=== PATIENT | female | born 1930 | race Caucasian/White ===

== ENCOUNTER 2018-06-27 12:20 | Emergency (ER) | payer BC ==
[~2018-06-27] VITALS: Ht 152.4 cm; Wt 63.5 kg
[2018-06-27] MEDS ORDERED: SWABABLE VALVE TRANSFER SET EA MC ONE (12:38)
[2018-06-27] MEDS ORDERED: IV NORMAL SALINE 0 ML IV ONE (12:38)
[2018-06-27] MEDS ORDERED: NORMAL SALINE FLUSH 10 ML DISP.SYRIN ONE (12:38)
[2018-06-27] MEDS ORDERED: IOHEXOL 350 100 ML INFUS..BTL ONE (12:38)
--- NOTE | 2018-06-27 13:46 | NUR ---
A staff from patient's assisted living home is coming to coal picker this patient. Patient is resting comfortably on her own wheelchair, NAD.
--- NOTE | 2018-06-27 14:16 | NUR ---
Patient discharged to assisted living home in stable conditon. Written and verbal after care instructions given to patient. Patient verbalizes understanding of instructions. Patient was seen walking using the handles of her own wheelchair to the ER waiting room.
== END 2018-06-27 14:20 | disposition home or self-care (01) ==
LOC: ER 12:20
DX: M79.661 Pain in right lower leg (principal); M79.662 Pain in left lower leg; F17.200 Nicotine dependence, unspecified, uncomplicated; Z90.89 Acquired absence of other organs
CPT/HCPCS: A4663; J3490; J7050; Q9967

== ENCOUNTER 2019-01-05 11:46 | Inpatient (IN) | payer BC, OTHER ==
[~2019-01-05] VITALS: Ht 162.6 cm; Wt 54.0 kg
[2019-01-05] MEDS ORDERED: IV NORMAL SALINE 1000 ML BAG IV ONE (12:00)
[2019-01-05] MEDS ORDERED: KETOROLAC TROMETHAMINE 15 MG INJ IV ONE (12:00)
[2019-01-05] MEDS ORDERED: SWABABLE VALVE TRANSFER SET EA MC ONE (12:17)
[2019-01-05] MEDS ORDERED: IOHEXOL 300MG/ML 100 ML INFUS..BTL ONE (12:18)
[2019-01-05] MEDS ORDERED: IV NORMAL SALINE 250 ML IV ONE (12:18)
[2019-01-05] MEDS ORDERED: KETOROLAC TROMETHAMINE 15 MG INJ ONE (12:19)
[2019-01-05 12:20] LABS: BASOPHILS % (AUTO) 0.4 % (0.0-2.0); EOSINOPHILS # (AUTO) 0.1 K/uL (0.0-0.7); EOSINOPHILS % (AUTO) 1.9 % (0.0-7.0); HEMATOCRIT 39.2 % (31.2-41.9); HEMOGLOBIN 12.7 g/dL (10.9-14.3); LYMPHOCYTES # (AUTO) 1.4 K/uL (20.0-40.0); LYMPHOCYTES % (AUTO) 24.5 % (20.5-51.5); MEAN CORPUSCULAR HEMOGLOBIN 30.1 uug (24.7-32.8); MEAN CORPUSCULAR HGB CONC 32 g/dL (32.3-35.6); MONOCYTES # (AUTO) 0.4 K/uL (2.0-10.0); MONOCYTES % (AUTO) 7.8 % (0.0-11.0); NEUTROPHILS # (AUTO) 3.7 K/uL (1.8-8.9); NEUTROPHILS % (AUTO) 65.4 % (38.5-71.5); PLATELET COUNT (AUTO) 182 K/uL (179-408); RED BLOOD CELL COUNT(AUTO) 4.21 MIL/uL (3.63-4.92); WHITE BLOOD COUNT (AUTO) 5.7 K/uL (3.8-11.8)
[2019-01-05 12:35] LABS: CARBON DIOXIDE 28 mmol/L (21-32); CHLORIDE 106 mmol/L (98-107); CREATININE 0.9 mg/dL (0.6-1.3); GLUCOSE 100 mg/dL (74-106); POTASSIUM 4.3 mmol/L (3.5-5.1); UREA NITROGEN, BLOOD 24 mg/dL (7-18)
[2019-01-05 12:46] LABS: ALANINE AMINOTRANSFERASE 15 U/L (14-59); ALKALINE PHOSPHATASE 84 U/L (50-136); ASPARTATE AMINOTRANSFERASE 16 U/L (15-37); BILIRUBIN,DIRECT 0.1 mg/dL (0.0-0.2); BILIRUBIN,TOTAL 0.4 mg/dL (0.2-1.0)
--- NOTE | 2019-01-05 13:00 | NUR ---
HOSPITAL SANDWICH PROVIDED FOR PT. PT REFUSING FOOD AT THIS TIME.
[2019-01-05] MEDS ORDERED: ASPIRIN 81 MG TAB.CHEW PO ONE (13:30)
--- NOTE | 2019-01-05 13:39 | NUR ---
LEFT A MESSAGE FOR DR. MAGAÑA OFFICE.
--- NOTE | 2019-01-05 13:55 | NUR ---
PT BEING FRUSTRATED AND AGITATED,IN SPITE OF COMFORT MEASURES PROVIDED.
[2019-01-05] MEDS ORDERED: ASPIRIN 81 MG TAB.CHEW ONE (13:58)
--- NOTE | 2019-01-05 14:00 | NUR ---
PT PULLED THE HEPLOCK OUT.
--- NOTE | 2019-01-05 14:25 | NUR ---
PT ADMITTED TO TELE. TRANSFER TO BED PENDING ON BED AVAILABILITY
--- NOTE | 2019-01-05 14:30 | NUR ---
PT CALM AT THIS POINT. PT GETS RELIEF FROM TALKING TO PT AND GIVING REASSURANCE.
--- NOTE | 2019-01-05 14:42 | NUR ---
DR. CHISHOLM AT BEDSIDE.
--- NOTE | 2019-01-05 15:50 | NUR ---
PT EATING HOSPITAL SANDWICH WITH GOOD APETITE.
--- NOTE | 2019-01-05 16:00 | NUR ---
RECEIVED THIS ADMISSION FROM ER 88 YEAR OLD FEMALE PER TORRI, WITH A DIAGNOSIS OF CHEST PAIN. TRANSFERRED TO BED COMFORTABLY, ROUTINE ADMISSION CARE RENDERED. AWAKE ALERT AND ORIENTED X3, BUT AGITATED WANTED TO DANGLE FEET, ANGRY BUT ABLE TO REDIRECT HER, PATIENT INCONTINENT DIAPER CHANGED AND REPOSITIONING IN BED COMFORTABLE.SALINE LOCK IN RIGHT FOREARM. DR FOX INFORMED OF ADMISSION WITH ORDERS, CALLED [facility] TO GET MEDICAL RECORDS AND MEDICATION LIST, AWAITING FOR RECORDS TO BE FAXED.
--- NOTE | 2019-01-05 16:00 | NUR ---
PT TRANSFERED TO FLOOR IN STABLE CONDITION
[2019-01-05 16:43] VITALS: BP 123/83
[2019-01-05] MEDS ORDERED: ACETAMINOPHEN 325 MG TABLET PO PRN (18:00)
[2019-01-05] MEDS ORDERED: ONDANSETRON 4 MG/2 ML VIAL IV PRN (18:00)
[2019-01-05] MEDS ORDERED: ZOLPIDEM 5 MG TABLET PO PRN (18:00)
[2019-01-05] MEDS ORDERED: Z GUARD REMEDY PASTE 57 GM TUBE TOP PRN (18:00)
[2019-01-05] MEDS ORDERED: MAGNESIUM HYDROXIDE 30 ML LIQUID UDC PO PRN (18:00)
[2019-01-05] MEDS ORDERED: HYDROCODONE/APAP 5-325MG TABLET PO PRN (18:00)
--- NOTE | 2019-01-05 19:45 | NUR ---
PATIENT ALERT, NO SOB NO CHEST PAIN, TELE MONITOR WITH FREQUENT PAC, AND OCCASIONAL PVC. PATIENT INCONTINENT OF BLADDER, KEPT CLEAN AND DRY. PATIENT HAS GENERALIZED BODY PAIN, BUT REFUSED TO TAKE PAIN MEDICATIONS. PATIENT EASILY GET AGITATED, PATIENT WAS SUSPICIOUS WHEN GIVING CARE, EXPLAINED ALL PROCEDURE PRIOR CARE. CONT TO MONITOR.
[2019-01-05 20:00] VITALS: BP 142/61
[2019-01-06] VITALS: BP 131/59
[2019-01-06 04:00] VITALS: BP 150/61
--- NOTE | 2019-01-06 05:24 | NUR ---
PATIENT ALERT, NO SOB NO CHEST PAIN, ON TELE MONITOR WITH FREQUENT PAC, AND OCCASIONAL PVC. PATIENT HAS EPISODES OF AGITATION, YELLS AND SCREAM AT STAFF. PATIENT REFUSED LAB WORKS, YELLS AND SCREAMS. REDIRECT PATIENT BEHAVIOR BUT NOT EFFECTIVE. PATIENT HAS WRAPPED IV SITE ON R ARM BUT REFUSED TO BE CHECK FOR PLACEMENT AND PATENTCY, WILL CONT TO MONITOR.
[2019-01-06 08:54] LABS: BASOPHILS % (AUTO) 0.3 % (0.0-2.0); EOSINOPHILS # (AUTO) 0.1 K/uL (0.0-0.7); EOSINOPHILS % (AUTO) 0.7 % (0.0-7.0); HEMATOCRIT 36.9 % (31.2-41.9); LYMPHOCYTES # (AUTO) 0.9 K/uL (20.0-40.0); LYMPHOCYTES % (AUTO) 9.8 % (20.5-51.5); MEAN CORPUSCULAR HEMOGLOBIN 30.1 uug (24.7-32.8); MEAN CORPUSCULAR HGB CONC 33 g/dL (32.3-35.6); MEAN CORPUSCULAR VOLUME 92.6 fL (75.5-95.3); MONOCYTES # (AUTO) 0.6 K/uL (2.0-10.0); MONOCYTES % (AUTO) 7.2 % (0.0-11.0); NEUTROPHILS # (AUTO) 7.2 K/uL (1.8-8.9); PLATELET COUNT (AUTO) 188 K/uL (179-408); RED BLOOD CELL COUNT(AUTO) 3.98 MIL/uL (3.63-4.92); WHITE BLOOD COUNT (AUTO) 8.8 K/uL (3.8-11.8)
[2019-01-06 09:08] LABS: CARBON DIOXIDE 23 mmol/L (21-32); CHLORIDE 106 mmol/L (98-107); CHOLESTEROL 201 mg/dL (<200); CREATININE 0.7 mg/dL (0.6-1.3); GLUCOSE 74 mg/dL (74-106); HDL CHOLESTEROL 52 mg/dL (40-60); MAGNESIUM 1.8 mg/dL (1.8-2.4); PHOSPHOROUS 3.1 mg/dL (2.5-4.9); POTASSIUM 4.1 mmol/L (3.5-5.1); TRIGLYCERIDES 59 MG/DL (30-150); UREA NITROGEN, BLOOD 19 mg/dL (7-18)
--- NOTE | 2019-01-06 11:45 | NUR ---
PATIENT SEEN AND EXAMINED BY DR CHISHOLM WITH NEW ORDERS AND NOTED.
[2019-01-06 12:05] VITALS: BP 148/53
--- NOTE | 2019-01-06 13:00 | NUR ---
SAT AT THE EDGE OF THE BED AND ATE LUNCH EVEN THOUGH IT WAS DISCOURAGED PATIENT INSISTED ON SITTING AT THE EDGE OF THE BED SHE IS DIFFICULT AT TIMES CHECKED FREQUENTLY MADE COMFORTABLE WILL OBSERVE.
--- NOTE | 2019-01-06 18:18 | NUR ---
DR UMANA SEE AND EXAMINED PATIENT WITH NEW ORDERS AND NOTED.
[2019-01-06 20:06] VITALS: BP 126/52
[2019-01-06] MEDS: METOPROLOL TARTRATE 25 MG TABLET PO SCH (20:53)
[2019-01-07 00:46] VITALS: BP 127/55
[2019-01-07 04:46] VITALS: BP 140/53
--- NOTE | 2019-01-07 07:15 | NUR ---
END OF SHIFT REPORT Patient rested well in between care; fall precaution observed; pt refused AM lab at this time; rehabilitation construction specialist to come back continue plan of care.
--- NOTE | 2019-01-07 07:30 | NUR ---
PATIENT IS AWAKE IN BED ALERT AND ORIENTED VERBALLY RESPONDING AND MAKING SIMPLE NEEDS KNOWN.ON ROOM AIR WITH NO SHORTNESS OF BREATH PER REPORT PATIENT REFUSED BLOOD DRAW THIS AM WILL ATTEMPT TO CONVINCE HER TO ALLOW THE BLOOD WORK ORDERED.
[2019-01-07] MEDS: METOPROLOL TARTRATE 25 MG TABLET PO SCH (08:09)
[2019-01-07] MEDS ORDERED: ASPIRIN EC 81 MG TABLET.DR PO SCH (09:00)
[2019-01-07] MEDS ORDERED: METO25TA6 PO (10:57)
[2019-01-07] MEDS ORDERED: ASPI-618 PO (10:57)
[2019-01-07] MEDS ORDERED: FLUT1DIS28 INH (11:00)
[2019-01-07 11:15] VITALS: BP 132/66
--- NOTE | 2019-01-07 11:30 | NUR ---
DR CHISHOLM HERE SEEN PATIENT WITH ORDER TO DISCHARGE PATIENT BACK TO [facility] L[facility]ING TODAY PATIENT AWARE AND PER THE PAINT SPECIALIST [facility] HAS NO TRANSPORTATION TODAY SHE WILL NEED THE AMBULANCE TO GO BACK TO [facility].PATIENT STATED THAT SHE HAS NO RELATIVE FOR ME TO CONTACT ABOUT HER DISCHARGE.
--- NOTE | 2019-01-07 14:56 | NUR ---
PATIENT DISCHARGED PICKED UP BY THE AMBULANCE IN SATISFACTORY CONDITION WITH DISCHARGE INSTRUCTIONS AND ALL OF HER PERSONAL BELONGINGS.HEPLOCK REMOVED.
== END 2019-01-07 14:55 | DRG 282 ==
LOC: ER 11:46 → TELE3 15:34
PROVIDERS: ADMIT Internal Medicine; ATTEND Internal Medicine
DX: I21.4 Non-ST elevation (NSTEMI) myocardial infarction (principal); S20.411A Abrasion of right back wall of thorax, initial encounter; W05.0XXA Fall from non-moving wheelchair, initial encounter; Y92.098 Other place in other non-institutional residence as the place of occurrence of the external cause; Z87.891 Personal history of nicotine dependence; J43.2 Centrilobular emphysema; K44.9 Diaphragmatic hernia without obstruction or gangrene; R26.89 Other abnormalities of gait and mobility; I27.21 Secondary pulmonary arterial hypertension; G62.9 Polyneuropathy, unspecified; G31.84 Mild cognitive impairment of uncertain or unknown etiology; I51.89 Other ill-defined heart diseases; I25.10 Atherosclerotic heart disease of native coronary artery without angina pectoris; R79.89 Other specified abnormal findings of blood chemistry; R03.0 Elevated blood-pressure reading, without diagnosis of hypertension; R94.31 Abnormal electrocardiogram [ECG] [EKG]
CPT/HCPCS: 36415; 70030-TC; 71260; 83735; 84100; 85025; 85730; 93005; 93307; A4663; G0378; J1885; J7030; J7050; Q9967

== ENCOUNTER 2019-02-13 11:10 | Inpatient (IN) | payer BC, OTHER ==
[~2019-02-13] VITALS: Ht 162.6 cm; Wt 53.5 kg
[~2019-02-13 11:10] MED LIST: ASPI-618 PO; FLUT1DIS28 INH; METO25TA6 PO
--- NOTE | 2019-02-13 11:49 | NUR ---
DR. WU TALKING TO ER MD REGARDING THE PT CARE.
[2019-02-13] MEDS ORDERED: VANCOMYCIN IV 200 ML IV ONE (12:00)
[2019-02-13] MEDS ORDERED: VANCOMYCIN IV 200 ML ONE (12:11)
[2019-02-13 12:25] LABS: BASOPHILS % (AUTO) 0.4 % (0.0-2.0); EOSINOPHILS # (AUTO) 0.2 K/uL (0.0-0.7); EOSINOPHILS % (AUTO) 2.6 % (0.0-7.0); HEMATOCRIT 39.6 % (31.2-41.9); HEMOGLOBIN 12.8 g/dL (10.9-14.3); LYMPHOCYTES # (AUTO) 1.6 K/uL (20.0-40.0); LYMPHOCYTES % (AUTO) 19.6 % (20.5-51.5); MEAN CORPUSCULAR HEMOGLOBIN 29.8 uug (24.7-32.8); MEAN CORPUSCULAR HGB CONC 32 g/dL (32.3-35.6); MEAN CORPUSCULAR VOLUME 92.4 fL (75.5-95.3); MONOCYTES # (AUTO) 0.7 K/uL (2.0-10.0); MONOCYTES % (AUTO) 8.7 % (0.0-11.0); NEUTROPHILS # (AUTO) 5.5 K/uL (1.8-8.9); NEUTROPHILS % (AUTO) 68.7 % (38.5-71.5); PLATELET COUNT (AUTO) 249 K/uL (179-408); RED BLOOD CELL COUNT(AUTO) 4.29 MIL/uL (3.63-4.92)
[2019-02-13 12:32] LABS: ALANINE AMINOTRANSFERASE 13 U/L (14-59); ALKALINE PHOSPHATASE 85 U/L (50-136); ASPARTATE AMINOTRANSFERASE 10 U/L (15-37); BILIRUBIN,DIRECT 0.1 mg/dL (0.0-0.2); BILIRUBIN,TOTAL 0.4 mg/dL (0.2-1.0); CARBON DIOXIDE 29 mmol/L (21-32); CHLORIDE 107 mmol/L (98-107); CREATININE 0.8 mg/dL (0.6-1.3); GLUCOSE 112 mg/dL (74-106); POTASSIUM 4.5 mmol/L (3.5-5.1); UREA NITROGEN, BLOOD 23 mg/dL (7-18)
[2019-02-13] MEDS ORDERED: IV NORMAL SALINE 1000 ML BAG IV ONE (12:45)
--- NOTE | 2019-02-13 14:01 | NUR ---
TRIED TO [facility] MULTIPLE TIMES TO GET THE MED RECON.. NO RESPONSE, ANSWERING SYSTEM FULL.
--- NOTE | 2019-02-13 14:16 | NUR ---
PT TRANSFERING TO FLOOR IN STABLE CONDITION.
--- NOTE | 2019-02-13 14:30 | NUR ---
88 YEAR OLD FEMALE RECEIVED FROM ER VIA [facility] FOR SEPSIS TO ROOM 303 ,PT IS AXOX3 V S ARE STABLE ,CALL LIGHT WITH IN REACH MD CALLED FOR ADMISSION ORDERS
[2019-02-13 15:14] VITALS: BP 152/73
--- NOTE | 2019-02-13 16:24 | NUR ---
CLINICAL PHARMACY NOTE: VANCOMYCIN DOSING Request for vancomycin dosing on 88 y/o female 162.56 cm 53.52kg for cellulitis/sepsis Temp 97.7 BUN 23 Scr 0.8 WBC 8.0 vancomycin 1gm ivpb given in ER at 1200. Continue vancomycin 1gm ivpb [id number] estimated trough 15.6. Will order trough level prior to 4th dose. Will continue to monitor
[2019-02-13] MEDS: ASPIRIN 81 MG TAB.CHEW PO SCH (19:02)
[2019-02-13 20:19] VITALS: BP 149/64
[2019-02-13] MEDS: METOPROLOL TARTRATE 25 MG TABLET PO SCH (20:24)
[2019-02-14 04:00] VITALS: BP 122/54
--- NOTE | 2019-02-14 07:00 | NUR ---
IN BED RESTING ,IN NO ACUTE SIGNS OF DISTRESS. SR ON TELE. ENDORSED TO AM NURSE.
[2019-02-14 07:35] LABS: ALANINE AMINOTRANSFERASE 9 U/L (14-59); ALKALINE PHOSPHATASE 69 U/L (50-136); ASPARTATE AMINOTRANSFERASE 9 U/L (15-37); BILIRUBIN,TOTAL 0.4 mg/dL (0.2-1.0); CARBON DIOXIDE 25 mmol/L (21-32); CHLORIDE 110 mmol/L (98-107); CREATININE 0.6 mg/dL (0.6-1.3); GLUCOSE 91 mg/dL (74-106); MAGNESIUM 1.9 mg/dL (1.8-2.4); PHOSPHOROUS 2.9 mg/dL (2.5-4.9); POTASSIUM 4.2 mmol/L (3.5-5.1); TOTAL PROTEIN, SERUM 6.8 g/dL (6.4-8.2); UREA NITROGEN, BLOOD 15 mg/dL (7-18)
[2019-02-14] MEDS: METOPROLOL TARTRATE 25 MG TABLET PO SCH ×2 (08:13→21:39)
[2019-02-14] MEDS: ASPIRIN 81 MG TAB.CHEW PO SCH (08:13)
[2019-02-14] MEDS ORDERED: TRAMADOL HCL 50 MG TABLET PO PRN (08:30)
[2019-02-14] MEDS ORDERED: FLUTICASONE/SALMETEROL 250/50 INHALER INH SCH (09:00)
[2019-02-14] MEDS: FLUTICASONE/VILANTEROL 1 EACH BLST.W.DEV INH SCH (09:37)
[2019-02-14 11:43] VITALS: BP 120/47
[2019-02-14] MEDS: VANCOMYCIN IV 1,250 MG in IV DEXTROSE 5% 500 ML IV SCH (13:21)
--- NOTE | 2019-02-14 14:19 | NUR ---
CLINICAL PHARMACY NOTE: VANCOMYCIN DOSING Continue vancomycin dosing on 88 y/o female 162.56 cm 53.52kg for cellulitis/sepsis Temp 98 BUN 15 Scr 0.6 WBC 8.0(02/13) . Continue vancomycin 1gm ivpb [id number] estimated trough 15.6(second dose given today at 1400). Will order trough level prior to 4th dose(not ordered yet). Will continue to monitor
[2019-02-14 15:21] VITALS: BP 135/52
--- NOTE | 2019-02-14 20:00 | NUR ---
Patient was found in the room watching TV, IV was out. Patient reported removing it around lunch time. ER was called to put another IV in. Comfort and safety provided.
[2019-02-14 20:01] VITALS: BP 126/60
--- NOTE | 2019-02-14 20:45 | NUR ---
Iv was inserted on the right forearm. Patient is reporting pain in the BLE when moving or touching the area. Repositioned and put pillows under the legs. Patient is reporting being more comfortable. Comfort and safety provided
[2019-02-15] VITALS: BP 122/54
--- NOTE | 2019-02-15 02:00 | NUR ---
Re-positioned the patient, adjusted the pillows and HOB.
[2019-02-15 04:00] VITALS: BP 115/62
--- NOTE | 2019-02-15 06:53 | NUR ---
Patient slept well at night. In the AM refused to be changed demanded to be left alone. Continues to sleep.
--- NOTE | 2019-02-15 07:05 | NUR ---
Patient is in bed , no distress noted bed in low position with siderails up x 2. Bed alarm on.
[2019-02-15] MEDS: FLUTICASONE/VILANTEROL 1 EACH BLST.W.DEV INH SCH (09:03)
[2019-02-15] MEDS: ASPIRIN 81 MG TAB.CHEW PO SCH (09:03)
[2019-02-15] MEDS: METOPROLOL TARTRATE 25 MG TABLET PO SCH ×2 (09:06→20:40)
[2019-02-15 09:08] VITALS: BP 128/50
[2019-02-15 10:31] VITALS: BP 126/49
--- NOTE | 2019-02-15 11:10 | NUR ---
CLINICAL PHARMACY NOTE: VANCOMYCIN DOSING S; Continue vancomycin dosing on 88 y/o female for cellulitis/sepsis O: Temp 98.1 BUN 15 (02/14) Scr 0.6 (02/14) WBC 8.0(02/13) ht 162 cm wt 53.5 kg Plan Continue vancomycin 1gm ivpb [id number] estimated trough 15.6(3rd dose today at 1600). Will order trough level prior to 4th dose(ordered for 02/16 at 1730). Will continue to monitor
[2019-02-15 16:30] VITALS: BP 117/41
[2019-02-15] MEDS: VANCOMYCIN IV 1,250 MG in IV DEXTROSE 5% 500 ML IV SCH (17:01)
--- NOTE | 2019-02-15 18:38 | NUR ---
Patient has not been cooperative with care and easily irritable. Patient continues to be mildly forgetful and refusing to be cleaned or utilizing the pillows beneath her legs to float heals. Currently patient in bed, no distress noted at this time, bed in low position, side rails up x2.
[2019-02-15] MEDS ORDERED: CEFTRIAXONE 1 G in IV DEXTROSE 5% 50 ML IV SCH (20:00)
[2019-02-15 20:19] VITALS: BP 126/53
[2019-02-16 05:52] VITALS: BP 120/40
[2019-02-16 06:52] LABS: CARBON DIOXIDE 29 mmol/L (21-32); CHLORIDE 105 mmol/L (98-107); CHOLESTEROL 150 mg/dL (<200); CREATININE 0.7 mg/dL (0.6-1.3); GLUCOSE 86 mg/dL (74-106); HDL CHOLESTEROL 39 mg/dL (40-60); PHOSPHOROUS 3.5 mg/dL (2.5-4.9); POTASSIUM 4.1 mmol/L (3.5-5.1); TRIGLYCERIDES 60 MG/DL (30-150); UREA NITROGEN, BLOOD 16 mg/dL (7-18)
--- NOTE | 2019-02-16 07:10 | NUR ---
received report from material handler 2nd shift nurse, patient in bed asleep, no distress noted at this time, bed in low position, side rails up x2. Bed alarm on.
[2019-02-16 07:22] LABS: BASOPHILS % (AUTO) 0.8 % (0.0-2.0); EOSINOPHILS # (AUTO) 0.3 K/uL (0.0-0.7); EOSINOPHILS % (AUTO) 6.3 % (0.0-7.0); HEMATOCRIT 35.7 % (31.2-41.9); HEMOGLOBIN 11.7 g/dL (10.9-14.3); LYMPHOCYTES # (AUTO) 1.7 K/uL (20.0-40.0); LYMPHOCYTES % (AUTO) 33.4 % (20.5-51.5); MEAN CORPUSCULAR HEMOGLOBIN 29.9 uug (24.7-32.8); MEAN CORPUSCULAR HGB CONC 33 g/dL (32.3-35.6); MEAN CORPUSCULAR VOLUME 91.1 fL (75.5-95.3); MONOCYTES # (AUTO) 0.5 K/uL (2.0-10.0); MONOCYTES % (AUTO) 10.6 % (0.0-11.0); NEUTROPHILS # (AUTO) 2.4 K/uL (1.8-8.9); NEUTROPHILS % (AUTO) 48.9 % (38.5-71.5); PLATELET COUNT (AUTO) 232 K/uL (179-408); RED BLOOD CELL COUNT(AUTO) 3.92 MIL/uL (3.63-4.92)
[2019-02-16] MEDS ORDERED: CEFT1FRO2 IV (07:49)
[2019-02-16] MEDS ORDERED: RXVAN XX (07:49)
[2019-02-16] MEDS ORDERED: VANC1.257 IV (07:49)
[2019-02-16] MEDS: METOPROLOL TARTRATE 25 MG TABLET PO SCH (09:06)
[2019-02-16] MEDS: ASPIRIN 81 MG TAB.CHEW PO SCH (09:07)
[2019-02-16] MEDS: FLUTICASONE/VILANTEROL 1 EACH BLST.W.DEV INH SCH (09:08)
--- NOTE | 2019-02-16 11:10 | NUR ---
CLINICAL PHARMACY NOTE: VANCOMYCIN DOSING S; Continue vancomycin dosing on 88 y/o female for cellulitis/sepsis O: Temp 98.2 BUN 16 Scr 0.7 WBC 5.0 ht 162 cm wt 53.5 kg Trough pending tonight at 1730 Plan Continue vancomycin 1gm ivpb [id number] estimated trough 15.6. Trough due tonight at 1730 before 4th dose. Will check level at that time and adjust as needed. Will follow
[2019-02-16 11:36] VITALS: BP 121/57
[2019-02-16] MEDS ORDERED: Z GUARD REMEDY PASTE 57 GM TUBE TOP PRN (13:30)
--- NOTE | 2019-02-16 13:31 | NUR ---
WOUND CARE CONSULT: PT PRESENTS WITH REDNESS AND CRUSTING TO BILATERAL LOWER LEGS AND OPEN WOUND TO RT LOWER LEG, PRESENT ON ADMISSION. PT STATES THAT SHE PATS AT HER LEGS WITH A [place]. PT IS INCONTINENT. ALL SKIN PROTECTION RECOMMENDATIONS DISCUSSED WITH NURSING STAFF. DPM CONSULT RECOMMENDED. DR VELARDE AWARE OF CONSULT REQUEST. XEROFORM DRESSING PLACED FOR RT LOWER LEG. DEFER TO DP FOR WOUND TREATMENT PLAN. WILL SEE PRN. FOSTER IN AGREEMENT WITH PLAN OF CARE. Addendum: 02/16/19 at 1334 by FIDEL CASTILLO RN Amended: Links added. Addendum: 02/16/19 at 1501 by FIDEL CASTILLO RN PT NOTED TO BE AGITATED AT TIMES, YELLING AT STAFF.
[2019-02-16 16:00] VITALS: BP 140/56
--- NOTE | 2019-02-16 17:00 | NUR ---
Patient was given discharge information and report called to [facility] Nurse (JOSHUA). Pictures taken of wounds and ambulance took patient to facility with IV intact due to continued antibiotics. All needs met and no distress noted at this time.
[2019-02-16] MEDS ORDERED: Z GUARD REMEDY PASTE 57 GM TUBE TOP SCH (21:00)
== END 2019-02-16 17:30 | DRG 603 ==
LOC: ER 11:10 → TELE3 14:08 → MEDSURG3 02-15 10:13
PROVIDERS: ADMIT Internal Medicine; ATTEND Internal Medicine
DX: L03.116 Cellulitis of left lower limb (principal); L97.212 Non-pressure chronic ulcer of right calf with fat layer exposed; E87.2 Acidosis; L03.115 Cellulitis of right lower limb; J44.9 Chronic obstructive pulmonary disease, unspecified; I25.2 Old myocardial infarction; I87.2 Venous insufficiency (chronic) (peripheral); L85.3 Xerosis cutis; R73.9 Hyperglycemia, unspecified; F03.90 Unspecified dementia, unspecified severity, without behavioral disturbance, psychotic disturbance, mood disturbance, and anxiety; I25.10 Atherosclerotic heart disease of native coronary artery without angina pectoris; Z79.51 Long term (current) use of inhaled steroids; Z79.82 Long term (current) use of aspirin; Z87.891 Personal history of nicotine dependence; G62.9 Polyneuropathy, unspecified
CPT/HCPCS: 36415; 83605; 83735; 84100; 85025; 85730; 87040; 93005; A4663; G0378; J0696; J3370; J7030; J7040; J7060

== ENCOUNTER 2019-03-19 11:15 | Emergency (ER) | payer BC ==
[~2019-03-19] VITALS: Ht 162.6 cm; Wt 53.5 kg
[~2019-03-19 11:15] MED LIST changes: +CEFT1FRO2 IV; +RXVAN XX; +VANC1.257 IV
--- NOTE | 2019-03-19 11:25 | NUR ---
MD at bedside to examine patient.
[2019-03-19] MEDS ORDERED: diphenhydrAMINE 25 MG CAP PO ONE ×2 (11:30→11:32)
[2019-03-19 11:45] LABS: BASOPHILS % (AUTO) 0.6 % (0.0-2.0); EOSINOPHILS # (AUTO) 0.4 K/uL (0.0-0.7); EOSINOPHILS % (AUTO) 4.6 % (0.0-7.0); HEMATOCRIT 38.7 % (31.2-41.9); HEMOGLOBIN 12.8 g/dL (10.9-14.3); LYMPHOCYTES # (AUTO) 1.6 K/uL (20.0-40.0); MEAN CORPUSCULAR HEMOGLOBIN 29.8 uug (24.7-32.8); MEAN CORPUSCULAR HGB CONC 33 g/dL (32.3-35.6); MEAN CORPUSCULAR VOLUME 90.3 fL (75.5-95.3); MONOCYTES # (AUTO) 0.7 K/uL (2.0-10.0); MONOCYTES % (AUTO) 8.6 % (0.0-11.0); NEUTROPHILS # (AUTO) 5.3 K/uL (1.8-8.9); NEUTROPHILS % (AUTO) 66.2 % (38.5-71.5); PLATELET COUNT (AUTO) 200 K/uL (179-408); RED BLOOD CELL COUNT(AUTO) 4.29 MIL/uL (3.63-4.92)
--- NOTE | 2019-03-19 11:48 | NUR ---
venous doppler in progress.
[2019-03-19] MEDS ORDERED: FLUT1DIS28 IH (11:50)
[2019-03-19] MEDS ORDERED: MULT-213 PO (11:50)
[2019-03-19] MEDS ORDERED: BISA10SU12 RC (11:50)
[2019-03-19] MEDS ORDERED: LACT1TAB13 PO (11:50)
[2019-03-19] MEDS ORDERED: SENN-168 PO (11:50)
[2019-03-19] MEDS ORDERED: HYDR-3326 PO (11:50)
[2019-03-19] MEDS ORDERED: CHOL20004 PO (11:50)
[2019-03-19] MEDS ORDERED: ASPI81TA31 PO (11:50)
[2019-03-19] MEDS ORDERED: TRAM50TA2 PO (11:50)
[2019-03-19] MEDS ORDERED: ASCO500T9 PO (11:50)
[2019-03-19] MEDS ORDERED: METO25TA6 PO (11:50)
[2019-03-19] MEDS ORDERED: NA P133E RC (11:50)
[2019-03-19] MEDS ORDERED: ALBU2.5V38 IH (11:50)
[2019-03-19 11:54] LABS: CARBON DIOXIDE 29 mmol/L (21-32); CHLORIDE 105 mmol/L (98-107); CREATININE 0.9 mg/dL (0.6-1.3); GLUCOSE 121 mg/dL (74-106); POTASSIUM 4.7 mmol/L (3.5-5.1); UREA NITROGEN, BLOOD 19 mg/dL (7-18)
[2019-03-19 11:59] LABS: ALANINE AMINOTRANSFERASE 10 U/L (14-59); ALKALINE PHOSPHATASE 83 U/L (50-136); ASPARTATE AMINOTRANSFERASE 18 U/L (15-37); BILIRUBIN,TOTAL 0.4 mg/dL (0.2-1.0); TOTAL PROTEIN, SERUM 7.6 g/dL (6.4-8.2)
[2019-03-19] MEDS ORDERED: predniSONE 20 MG TABLET PO ONE (12:30)
[2019-03-19] MEDS ORDERED: CEFTRIAXONE 1 G VIAL IM ONE (12:45)
[2019-03-19] MEDS ORDERED: CEFTRIAXONE 1 G VIAL ONE (12:53)
[2019-03-19] MEDS ORDERED: predniSONE 20 MG TABLET ONE (12:53)
[2019-03-19] MEDS ORDERED: CEphaleXIN 500 MG CAPSULE PO ONE (13:15)
[2019-03-19] MEDS ORDERED: CEphaleXIN 500 MG CAPSULE ONE (13:26)
--- NOTE | 2019-03-19 13:30 | NUR ---
a call to ambulance services to schedule patient transport back to [facility]. Spoke with Robson from dispatch and an ETA of 1.5 hours received. trip number [id number].
--- NOTE | 2019-03-19 13:56 | NUR ---
HR of 64, 143/67, rr 18, AAOx1.
[2019-03-19 15:02] VITALS: BP 128/88
--- NOTE | 2019-03-19 15:05 | NUR ---
Patient discharged to home in stable conditon. Written and verbal after care instructions given. Patient and unit 126 ambulance verbalizes understanding of instructions.
== END 2019-03-19 15:07 | disposition home or self-care (01) ==
LOC: ER 11:15
DX: L53.9 Erythematous condition, unspecified (principal); R22.33 Localized swelling, mass and lump, upper limb, bilateral; I25.2 Old myocardial infarction; F17.200 Nicotine dependence, unspecified, uncomplicated; Z90.89 Acquired absence of other organs; Z79.82 Long term (current) use of aspirin; Z79.899 Other long term (current) drug therapy; Z79.2 Long term (current) use of antibiotics
CPT/HCPCS: 36415; 71045; 80053; 85025; 85730; 93970; 99284; J7512; Q0163; A4663; J0696

== ENCOUNTER 2019-06-15 15:19 | Inpatient (IN) | payer BC, OTHER ==
[~2019-06-15] VITALS: Ht 162.6 cm; Wt 51.3 kg
[~2019-06-15 15:19] MED LIST changes: +ALBU2.5V38 IH; +ASCO500T9 PO; -ASPI-618 PO; +ASPI81TA31 PO; +BISA10SU12 RC; -CEFT1FRO2 IV; +CHOL20004 PO; +FLUT1DIS28 IH; -FLUT1DIS28 INH; +HYDR-3326 PO; +LACT1TAB13 PO; +MULT-213 PO; +NA P133E RC; -RXVAN XX; +SENN-168 PO; +TRAM50TA2 PO; -VANC1.257 IV
--- NOTE | 2019-06-15 15:39 | NUR ---
pt in bed resting A&O x4. c/o RLE wound check. 2 wounds noted on LLE. skin warm and dry to touch. pedal pulses palpable. denies any pain or discomfort around the site. pt able to move extremity freely. Breathing even and unlabored. denies any SOB. speech clear and able to make needs known / follow commands. bed low. s/r up x2
[2019-06-15] MEDS ORDERED: CLIN300C11 PO (15:59)
[2019-06-15] MEDS ORDERED: MULT1TAB62 PO (15:59)
[2019-06-15] MEDS ORDERED: IPRA3AMP23 NEB (15:59)
[2019-06-15] MEDS ORDERED: SULFAMETH/TRIMETH 800/160 MG TABLET ONE (16:26)
[2019-06-15] MEDS ORDERED: MUPIROCIN 2% OINT 22 GM TUBE ONE (16:27)
[2019-06-15] MEDS ORDERED: MUPIROCIN 2% OINT 22 GM TUBE TP ONE (16:30)
[2019-06-15] MEDS ORDERED: SULFAMETH/TRIMETH 800/160 MG TABLET PO ONE (16:30)
[2019-06-15] MEDS ORDERED: LORAZEPAM 1 MG TABLET ONE (16:41)
[2019-06-15] MEDS ORDERED: LORAZEPAM 0.5 MG TABLET PO ONE (16:45)
[2019-06-15] MEDS ORDERED: LORAZEPAM 2 MG/1 ML VIAL IM ONE (18:15)
[2019-06-15] MEDS ORDERED: LORAZEPAM 2 MG/1 ML VIAL ONE (18:15)
--- NOTE | 2019-06-15 18:23 | NUR ---
pt very restless, agitated inspite of comfort measures and reorientation provided. pt wants to leave the hospital saying that her ride is waiting for her, when there was no ride waiting. notified
[2019-06-15 19:15] LABS: BASOPHILS % (AUTO) 0.5 % (0.0-2.0); EOSINOPHILS # (AUTO) 0.2 K/uL (0.0-0.7); EOSINOPHILS % (AUTO) 2.4 % (0.0-7.0); HEMATOCRIT 36.7 % (31.2-41.9); HEMOGLOBIN 11.9 g/dL (10.9-14.3); LYMPHOCYTES # (AUTO) 1.2 K/uL (20.0-40.0); LYMPHOCYTES % (AUTO) 18.6 % (20.5-51.5); MEAN CORPUSCULAR HEMOGLOBIN 29.5 uug (24.7-32.8); MEAN CORPUSCULAR HGB CONC 33 g/dL (32.3-35.6); MEAN CORPUSCULAR VOLUME 90.7 fL (75.5-95.3); MONOCYTES # (AUTO) 0.5 K/uL (2.0-10.0); MONOCYTES % (AUTO) 7.4 % (0.0-11.0); NEUTROPHILS # (AUTO) 4.5 K/uL (1.8-8.9); NEUTROPHILS % (AUTO) 71.1 % (38.5-71.5); PLATELET COUNT (AUTO) 210 K/uL (179-408); RED BLOOD CELL COUNT(AUTO) 4.05 MIL/uL (3.63-4.92); WHITE BLOOD COUNT (AUTO) 6.4 K/uL (3.8-11.8)
[2019-06-15] MEDS ORDERED: TDAP DIPH,PERTUSS,TET VAC/PF 0.5 ML DISP.SYRIN IM ONE (19:15)
[2019-06-15 19:24] LABS: CARBON DIOXIDE 32 mmol/L (21-32); CHLORIDE 105 mmol/L (98-107); CREATININE 0.8 mg/dL (0.6-1.3); GLUCOSE 110 mg/dL (74-106); POTASSIUM 4.4 mmol/L (3.5-5.1); UREA NITROGEN, BLOOD 19 mg/dL (7-18)
[2019-06-15 19:29] LABS: ETHANOL < 3 MG/DL (0-0)
[2019-06-15 19:31] LABS: ACETAMINOPHEN < 2.0 ug/mL (10-30); ALANINE AMINOTRANSFERASE 14 U/L (14-59); ALKALINE PHOSPHATASE 78 U/L (50-136); ASPARTATE AMINOTRANSFERASE 15 U/L (15-37); BILIRUBIN,DIRECT 0.1 mg/dL (0.0-0.2); BILIRUBIN,TOTAL 0.2 mg/dL (0.2-1.0); TOTAL PROTEIN, SERUM 7.4 g/dL (6.4-8.2)
[2019-06-15 19:46] LABS: *BILIRUBIN,URIN NEGATIVE (NEGATIVE); *BLOOD, URINE 1+ (NEGATIVE); *CLARITY,URINE CLOUDY (CLEAR); *COLOR,URINE YELLOW (YELLOW); *KETONES,URINE NEGATIVE (NEGATIVE); *UROBILINOGEN,URINE 0.2 E.U./dl (NORMAL); LEUKOCYTE ESTERASE ,URINE 3+ (NEGATIVE); NITRITE, URINE POSITIVE (NEGATIVE); UGLUCOSE NEGATIVE (NEGATIVE)
[2019-06-15 19:52] LABS: THYROID STIMULATING HORMONE 2.704 mIU/mL (0.358-3.740)
[2019-06-15 19:53] LABS: BACTERIA,URINE MANY /HPF (NONE SEEN); SQUAMOUS EPITHELIAL CELL,UR MODERATE /HPF (NONE SEEN); WBC,URINE TNTC /HPF (0-3)
[2019-06-15 19:58] LABS: *AMPHETAMINE, URINE NEGATIVE (NEGATIVE); *BARBITURATE, URINE NEGATIVE (NEGATIVE); *CANNABINOID, URINE NEGATIVE (NEGATIVE); *COCCAINE, URINE NEGATIVE (NEGATIVE); *OPIATE, URINE NEGATIVE (NEGATIVE); *PHENCYCLIDINE SCREEN,URINE NEGATIVE (NEGATIVE)
[2019-06-15] MEDS ORDERED: ASPIRIN EC 81 MG TABLET.DR PO SCH (20:15)
[2019-06-15] MEDS ORDERED: CEFTRIAXONE 2 G in IV DEXTROSE 5% 100 ML IV ONE (20:15)
[2019-06-15] MEDS ORDERED: ASPIRIN 81 MG TAB.CHEW ONE (20:21)
[2019-06-15] MEDS ORDERED: CEFTRIAXONE 1 G VIAL ONE (20:21)
[2019-06-15] MEDS ORDERED: ASPIRIN 300 MG RECTAL SUPP RC ONE ×2 (20:25→20:45)
--- NOTE | 2019-06-16 | NUR ---
New Admit Patient received to care via lizzie from ER. Patient is sleeping and unable to answer questions coherently, but does respond to name - oriented x1. Patient is a poor historian and records from assisted living facility are limited. Patient has a left 20g AC heplock which is patent and intact. Skin of BLE reflect redness, right ankle scabbing, left ankle scabbing, and right childers wound. All safety and fall precaution measures are in place. Call light and personal items are within reach at all times. Will continue to monitor. Addendum: 06/16/19 at 0216 by HERNANDEZ TAN RN Patient's right middle finger is missing at the first joint.
[2019-06-16 00:43] VITALS: BP 147/52
[2019-06-16] MEDS ORDERED: FLEET ENEMA 133 ML BOTTLE RC PRN (00:45)
[2019-06-16] MEDS ORDERED: Z GUARD REMEDY PASTE 57 GM TUBE TOP PRN (00:45)
[2019-06-16] MEDS ORDERED: TRAMADOL HCL 50 MG TABLET PO PRN (00:45)
[2019-06-16] MEDS ORDERED: ONDANSETRON 4 MG/2 ML VIAL IV PRN (00:45)
[2019-06-16] MEDS ORDERED: ACETAMINOPHEN 325 MG TABLET PO PRN (00:45)
[2019-06-16] MEDS ORDERED: BISACODYL 10 MG SUPP.RECT RC PRN (00:45)
[2019-06-16] MEDS ORDERED: ZOLPIDEM 5 MG TABLET PO PRN (00:45)
[2019-06-16 04:44] VITALS: BP 136/67
--- NOTE | 2019-06-16 05:56 | NUR ---
Nurse tried to apply ordered oxygen via NC, patient refused and attempted to bite nurse. Nurse explained the risks/benefits of ordered oxygen and patient still refused.
--- NOTE | 2019-06-16 06:56 | NUR ---
Patient slept throughout night after admittance to telemetry unit. Patient is alert/oriented x1, will respond to name, but does not know where she is at. Telemetry monitoring was d/c by MD Raphael this AM. Patient was compliant with most aspects of care with the exception of prescribed oxygen, which patient refused. All nursing needs were addressed promptly and patient is warm, dry, and comfortable at this time. Temperature in running low and measures to warm patient have been implemented. Call light and personal items are within reach at all times. All safety and fall precaution measures remain in place.
--- NOTE | 2019-06-16 07:56 | NUR ---
LATE ENTRY: 06/15/19 ROCEPHIN 2GM IVPB WAS GIVEN OVER 1 HR ORDERED: START TIME: 2103 COMPLETED: 2203
--- NOTE | 2019-06-16 08:06 | NUR ---
received patient on bed, sleeping comfortably. no distress noted.
--- NOTE | 2019-06-16 08:30 | NUR ---
voided 300 ml clear yellow urine
[2019-06-16] MEDS ORDERED: FLUTICASONE/SALMETEROL 250/50 INHALER IH SCH (09:00)
[2019-06-16] MEDS ORDERED: ASPIRIN EC 81 MG TABLET.DR PO SCH (09:00)
[2019-06-16] MEDS: METOPROLOL TARTRATE 25 MG TABLET PO SCH ×2 (09:00→21:00)
[2019-06-16] MEDS: ASCORBIC ACID 500 MG TABLET PO SCH (09:05)
[2019-06-16] MEDS: ASPIRIN 81 MG TAB.CHEW PO SCH (09:05)
[2019-06-16] MEDS: ALBUTEROL SULFATE 2.5 MG/3 ML NEBU IH SCH ×2 (09:33→20:26)
[2019-06-16] MEDS: FLUTICASONE/VILANTEROL 1 EACH BLST.W.DEV INH SCH (09:52)
[2019-06-16] MEDS: CLINDAMYCIN HCL 300 MG CAPSULE PO SCH ×4 (10:41→21:00)
[2019-06-16 11:14] VITALS: BP 141/45
--- NOTE | 2019-06-16 12:30 | NUR ---
assisted up bed, prn easily anxious quick burst with words but easily calmed down when needs provided.
--- NOTE | 2019-06-16 14:50 | NUR ---
resting well, fluids provided ,tolerated well
[2019-06-16 15:06] VITALS: BP 110/47
--- NOTE | 2019-06-16 15:27 | NUR ---
called medical records in [facility], will call back tuesday06/18/19 for info regarding patient vaccination, flu and pneumonia.
--- NOTE | 2019-06-16 18:07 | NUR ---
set up for dinner, able to feed self. prn sob relieved by rest. refused breathing treatment for now, patient eating. will endorse to next shift if patient wanted treatment ordered.
--- NOTE | 2019-06-16 19:15 | NUR ---
Received bedside report from AM nurse. Patient is in bed, sleeping but arousable. Noted with hearing difficulties had to speak with louder voice to be heard but verbally responsive. Likes to keep door slightly closed and lights turned off. Initial assessment done, will continue to monitor on medsurg. Denies pain or any discomfort at this time.
[2019-06-16 20:04] VITALS: BP 105/34
[2019-06-16] MEDS: ATORVASTATIN 40 MG TABLET PO SCH (21:00)
[2019-06-16] MEDS ORDERED: CEFTRIAXONE 1 G in IV DEXTROSE 5% 50 ML IV SCH (21:00)
[2019-06-16] MEDS: CULTURELLE CAPSULE PO SCH (21:00)
[2019-06-16] MEDS: SENNOSIDES 1 TABLET PO SCH (21:00)
--- NOTE | 2019-06-16 21:15 | NUR ---
Pt is refusing her bedtime medications including PO and IV antibiotics, does not want to be bothered at night. Getting agitated when trying to explain importance of medications. Gave patient space, paged Dr. Raphael to report non-administration.
--- NOTE | 2019-06-16 21:27 | NUR ---
Spoke with Dr. Raphael who ordered to consult with Pharmacist to make changes to timing administration for antibiotics.
[2019-06-17 06:16] VITALS: BP 115/45
[2019-06-17] MEDS: CLINDAMYCIN HCL 300 MG CAPSULE PO SCH ×4 (06:21→20:08)
--- NOTE | 2019-06-17 06:33 | NUR ---
Patient slept well through the night, frequent roundings done, but avoided to wake up patient. Patient slightly upset being woken up this morning for diaper change and AM oral antibiotics. However, she eventually agreed to being changed and receiving oral antibiotics. No active signs of distress. Does not appear to be in sepsis, within baseline cognitive level. Will continue to monitor and endorse accordingly.
--- NOTE | 2019-06-17 07:30 | NUR ---
Patient calm and comfortable upon assessment; patient will continue to be monitored.
[2019-06-17] MEDS: ALBUTEROL SULFATE 2.5 MG/3 ML NEBU IH SCH ×2 (08:40→20:35)
[2019-06-17] MEDS ORDERED: CEFTRIAXONE 1 G in IV DEXTROSE 5% 50 ML IV SCH (09:00)
[2019-06-17 09:02] LABS: BASOPHILS % (AUTO) 0.7 % (0.0-2.0); EOSINOPHILS # (AUTO) 0.3 K/uL (0.0-0.7); EOSINOPHILS % (AUTO) 4.4 % (0.0-7.0); HEMATOCRIT 36.3 % (31.2-41.9); MEAN CORPUSCULAR HEMOGLOBIN 29.6 uug (24.7-32.8); MEAN CORPUSCULAR HGB CONC 33 g/dL (32.3-35.6); MEAN CORPUSCULAR VOLUME 89.5 fL (75.5-95.3); MONOCYTES # (AUTO) 0.5 K/uL (2.0-10.0); MONOCYTES % (AUTO) 8.3 % (0.0-11.0); NEUTROPHILS # (AUTO) 3.4 K/uL (1.8-8.9); NEUTROPHILS % (AUTO) 54.6 % (38.5-71.5); PLATELET COUNT (AUTO) 214 K/uL (179-408); RED BLOOD CELL COUNT(AUTO) 4.06 MIL/uL (3.63-4.92); WHITE BLOOD COUNT (AUTO) 6.2 K/uL (3.8-11.8)
[2019-06-17 09:22] LABS: ALANINE AMINOTRANSFERASE 18 U/L (14-59); ALKALINE PHOSPHATASE 69 U/L (50-136); ASPARTATE AMINOTRANSFERASE 17 U/L (15-37); BILIRUBIN,TOTAL 0.3 mg/dL (0.2-1.0); CARBON DIOXIDE 27 mmol/L (21-32); CHLORIDE 105 mmol/L (98-107); CHOLESTEROL 182 mg/dL (<200); CREATININE 0.8 mg/dL (0.6-1.3); GLUCOSE 92 mg/dL (74-106); HDL CHOLESTEROL 52 mg/dL (40-60); MAGNESIUM 2.1 mg/dL (1.8-2.4); POTASSIUM 4.4 mmol/L (3.5-5.1); TOTAL PROTEIN, SERUM 7.1 g/dL (6.4-8.2); TRIGLYCERIDES 87 MG/DL (30-150); UREA NITROGEN, BLOOD 13 mg/dL (7-18)
[2019-06-17] MEDS: ASCORBIC ACID 500 MG TABLET PO SCH (09:47)
[2019-06-17] MEDS: ASPIRIN 81 MG TAB.CHEW PO SCH (09:47)
[2019-06-17] MEDS: CULTURELLE CAPSULE PO SCH ×2 (09:47→20:09)
[2019-06-17] MEDS: FLUTICASONE/VILANTEROL 1 EACH BLST.W.DEV INH SCH (09:48)
[2019-06-17] MEDS: METOPROLOL TARTRATE 25 MG TABLET PO SCH ×2 (09:49→20:11)
[2019-06-17 11:08] VITALS: BP 107/49
[2019-06-17] MEDS: CEphaleXIN 250 MG CAPSULE PO SCH ×2 (14:00→21:16)
[2019-06-17 15:06] VITALS: BP 105/47
--- NOTE | 2019-06-17 18:48 | NUR ---
Patient mostly calm through out shift with no signs of distress; patient at times agitated mildly redirectable; patient refused antibiotics once. Patient IV Placed and right arm. Report given to oncoming nurse.
[2019-06-17 19:46] VITALS: BP 122/47
[2019-06-17] MEDS: SENNOSIDES 1 TABLET PO SCH (20:09)
[2019-06-17] MEDS: ATORVASTATIN 40 MG TABLET PO SCH (20:09)
[2019-06-18 05:06] VITALS: BP 122/46
[2019-06-18] MEDS: CLINDAMYCIN HCL 300 MG CAPSULE PO SCH ×2 (05:43→11:28)
[2019-06-18] MEDS: CEphaleXIN 250 MG CAPSULE PO SCH ×2 (05:43→13:39)
--- NOTE | 2019-06-18 06:56 | NUR ---
Patient slept well through out the night. No complaint of pain at this time. Heplock on R wrist intact and patent. All needs attended. Will endorse accordingly
[2019-06-18] MEDS: ASPIRIN 81 MG TAB.CHEW PO SCH (08:31)
[2019-06-18] MEDS: ASCORBIC ACID 500 MG TABLET PO SCH (08:31)
[2019-06-18] MEDS: CULTURELLE CAPSULE PO SCH (08:31)
[2019-06-18] MEDS: FLUTICASONE/VILANTEROL 1 EACH BLST.W.DEV INH SCH (08:32)
[2019-06-18] MEDS: METOPROLOL TARTRATE 25 MG TABLET PO SCH (08:33)
[2019-06-18] MEDS ORDERED: ATOR40TA PO (08:40)
[2019-06-18] MEDS ORDERED: CEPH250C PO (08:40)
--- NOTE | 2019-06-18 08:49 | NUR ---
PATIENT SEEN AND ECAMINED BY DR MARISCAL WITH ORDER TO DISCHARGE PATIENT HOME TODAY WILL MAKE CONTACT WITH THE [employer]CHIT[employer] COMPUTER SCIENCE INTERN TO FIND OUT PATIENTS FINAL DESTINATION.
[2019-06-18] MEDS: ALBUTEROL SULFATE 2.5 MG/3 ML NEBU IH SCH (09:00)
[2019-06-18 12:07] VITALS: BP 130/61
--- NOTE | 2019-06-18 14:00 | NUR ---
WOUND CARE CONSULT: PT PRESENTS WITH WOUND TO RT ANTERIOR LOWER LEG AND FRAGILE SCAR TO LEFT LATERAL ANKLE, PRESENT ON ADMISSION. RECOMMEND DPM CONSULT/FOLLOW UP. PT TO BE DISCHARGED. RECOMMENDATIONS MADE FOR WOUND CARE AND SKIN PROTECTION. DISCUSSED WITH NURSING STAFF. MD IN AGREEMENT WITH PLAN OF CARE.
--- NOTE | 2019-06-18 15:05 | NUR ---
PATIENT DISCHARGED PICKED UP BY [facility] OR [facility] IN SATISFACTORY CONDITION WITH ALL HER PERSONAL BELONGINGS AND HER PERSONAL W/CHAIR.
== END 2019-06-18 15:10 | DRG 689 ==
LOC: ER 15:20 → TELE3 23:36 → MEDSURG3 06-16 06:20
PROVIDERS: ADMIT Internal Medicine; ATTEND Internal Medicine
DX: N39.0 Urinary tract infection, site not specified (principal); I21.A1 Myocardial infarction type 2; I25.10 Atherosclerotic heart disease of native coronary artery without angina pectoris; I25.2 Old myocardial infarction; B96.20 Unspecified Escherichia coli [E. coli] as the cause of diseases classified elsewhere; Z87.891 Personal history of nicotine dependence; I35.0 Nonrheumatic aortic (valve) stenosis; G31.84 Mild cognitive impairment of uncertain or unknown etiology; S81.801D Unspecified open wound, right lower leg, subsequent encounter; X58.XXXD Exposure to other specified factors, subsequent encounter; Z79.899 Other long term (current) drug therapy; G62.9 Polyneuropathy, unspecified; R26.9 Unspecified abnormalities of gait and mobility; I51.7 Cardiomegaly
CPT/HCPCS: 36415; 70030-TC; 71045; 80307; 83735; 84100; 84443; 85025; 85730; 87086; 90715; 93005; A4663; C1758; G0378; G0480; G0480-TC; J0696; J2060; J7050; J7060